=== PATIENT | female | born 1945 | race Caucasian/White ===

== ENCOUNTER → 2021-07-29 11:15 | Outpatient (CLI) | payer OTHER, SELFPAY ==
--- NOTE | 2021-07-29 | DI.MRI.S_ITS ---
PROCEDURE: MR LUMBAR SPINE WO CON INDICATIONS: Low back pain, unspecified TECHNIQUE: Noncontrast sagittal T1 spin echo and T2 fast echo, sagittal STIR, axial T1 and T2 fast spin echo through the lumbar spine. In cases with scoliosis, additional coronal T2 fast spin echo may be performed. COMPARISON: [facility] [place], XR LUMBAR SPINE WITH OLBIQUES PLUS FLEXION EXTENSION, 07/06/2021, 11:15. [facility], MR, L-SPINE WITHOUT CONTRAST, 12/08/2016, 18:58. [facility] [place], [facility], SPINE LUMB 2 OR 3VW, 11/30/2016, 15:23. FINDINGS: Image quality: Excellent. Alignment and Curvature: There is normal bony alignment. Bone Marrow: Marrow is of normal overall signal. No acute vertebral body compression fractures. Spinal Cord: Conus medullaris terminates at the L1 level. Visualized cord demonstrates normal signal and size. Paraspinous Soft Tissues: No paravertebral masses. The last well-developed disc space is regarded to be L5-S1. This numbering scheme is chosen to remain consistent with the prior MRI report. T12-L1: Normal appearance. L1-L2: Moderate loss of disc height is seen. Loss of disc signal is seen. Moderate disc bulge is seen, with a central disc extrusion, with superior migration of the disc material. The disc extrusion extends cranial caudally 1.7 cm. Moderate bilateral neural foraminal narrowing can be seen, left worse than right. Mild to moderate central canal narrowing is seen. The disc extrusion is similar to 2017. The degrees of neural foraminal narrowing have progressed compared to 2017. L2-L3: At least moderate loss of disc height and disc signal can be seen. At least moderate disc bulge is seen. There is a central disc protrusion. Reactive marrow endplate changes are seen which are hypointense on T1-weighted imaging and hyperintense on T2 weighted imaging, which is most consistent with edema (Modic type I changes). Mild to moderate facet hypertrophy is seen. There is moderate bilateral neural foraminal narrowing seen. Moderate central canal narrowing is seen. Compared to 2017, these degenerative changes have progressed. L3-L4: Moderate to severe loss of disc height and disc signal can be seen. Reactive marrow endplate changes are seen, which are hyperintense on T1-weighted and T2-weighted imaging and most consistent with fatty metaplasia (Modic type II changes). At least moderate disc bulge is seen, which is eccentric to the right. Moderate to prominent facet hypertrophy is seen. There is moderate to severe bilateral neural foraminal narrowing seen, right worse than left. There is a degree of compression seen upon the exiting nerve roots. Moderate to severe central canal narrowing is seen. The degree of central canal narrowing is exacerbated by prominent epidural fat posteriorly. These imaging findings have progressed compared to the prior study. L4-L5: Moderate loss of disc height is seen. Loss of disc signal is seen. Moderate disc bulge is seen, which is eccentric to the right. There is a central disc protrusion. Prominent facet hypertrophy is seen. There is at least moderate left-sided and moderate to severe right-sided neural foraminal narrowing seen. Moderate central canal narrowing is seen. Compared to 2017, these degenerative changes are worse. L5-S1: Moderate loss of disc height is seen. Loss of disc signal is seen. Mild to moderate disc bulge is seen. Prominent facet hypertrophy is seen at this level. There is at least moderate left-sided and mild right-sided neural foraminal narrowing seen. No central canal narrowing is seen. When comparison is made with the prior images, these findings are similar. IMPRESSION: Multiple levels of relatively prominent lumbar spine degenerative change are seen, which have progressed compared to 2017. Dictated by: Adan Jackson M.D. on 07/29/2021 at 12:33 Approved by: Adan Jackson M.D. on 07/29/2021 at 12:38
== END ==
PROVIDERS: Family Provider Internal Medicine; PCP Family Medicine; Referring Provider Physical Medicine & Rehabilitation Pain Medicine; Visit Provider Physical Medicine & Rehabilitation Pain Medicine
DX: M54.50 Low back pain, unspecified (principal); M47.816 Spondylosis without myelopathy or radiculopathy, lumbar region; M47.817 Spondylosis without myelopathy or radiculopathy, lumbosacral region
CPT/HCPCS: 72148

== ENCOUNTER → 2023-03-21 08:27 | Outpatient (CLI) | payer OTHER, SELFPAY ==
--- NOTE | 2023-03-21 08:28 | DI.RAD.S_ITS ---
PROCEDURE: XR LUMBAR SPINE MIN 4V INDICATIONS: BACK PAIN TECHNIQUE: 5 views of the lumbar spine were acquired, including bilateral oblique views. COMPARISON: [facility], MR, MR LUMBAR SPINE WO CON, 07/29/2021, 11:45. [facility] [place], CR, XR LUMBAR SPINE WITH OLBIQUES PLUS FLEXION EXTENSION, 07/06/2021, 11:15. FINDINGS: Bones: 5 nonrib-bearing vertebrae are present. There is stable bony alignment with mild levocurvature of the lumbar spine as well as minimal grade 1 anterolisthesis of L4 on L5 as well as L5 on S1. Redemonstration of advanced multilevel lumbar spondylitic changes and severe mid and lower lumbar facet arthropathy. No acute vertebral body compression fractures. No suspicious bony lesions. Soft tissues: Overlying bowel gas pattern is normal. No suspicious soft tissue calcifications. Oblique images: No pars defects. IMPRESSION: Lumbar spine without acute osseous abnormalities. Severe multilevel lumbar spondylosis. Dictated by: Enzo Adams M.D. on 03/21/2023 at 11:25 Approved by: Enzo Adams M.D. on 03/21/2023 at 11:29
== END ==
PROVIDERS: PCP Family Medicine; Referring Provider Physical Medicine & Rehabilitation; Visit Provider Physical Medicine & Rehabilitation
DX: M48.062 Spinal stenosis, lumbar region with neurogenic claudication (principal); M47.816 Spondylosis without myelopathy or radiculopathy, lumbar region; M54.17 Radiculopathy, lumbosacral region; M54.9 Dorsalgia, unspecified
CPT/HCPCS: 72110; 99214

== ENCOUNTER 2023-04-19 13:19 | Outpatient (CLI) | payer OTHER, SELFPAY ==
[2023-04-19] VITALS (9 sets, daily range): BP systolic 117–140; BP diastolic 62–76; PULSE 75–86; RESP 10–22; TEMP 36.7; O2SAT 95–98
--- NOTE | 2023-04-19 13:22 | DI.RAD.S_ITS ---
PROCEDURE: PAIN L/S FACET INJ/BLK 1ST KIRAN COMPARISON: None. INDICATIONS: SPONDYLOSIS Findings and impression: Intraoperative images for contrast injection at the right L4-L5 and L5-S1 were obtained. Please see operative note for full details. Dictated by: Nguyễn Joy M.D. on 04/19/2023 at 16:05 Approved by: Nguyễn Joy M.D. on 04/19/2023 at 16:06
[2023-04-19] MEDS: BETAMETHASONE 30 MG/5 ML MDV 12 MG INJ (14:09)
[2023-04-19] MEDS: IOPAMIDOL 15 ML VIAL 3 ML INJ (14:10)
[2023-04-19] MEDS: BUPIVACAINE 0.5% (PF) 10 ML VIAL 5 ML INJ (14:10)
[2023-04-19] MEDS: LIDOCAINE 1% 20 ML 5 ML INJ (14:10)
[2023-04-19] MEDS: MIDAZOLAM 2 MG/2 ML VIAL IV (14:11)
--- NOTE | 2023-04-19 14:27 | P.PCN_ITS ---
Date/Time/Diagnoses Date of procedure: 04/19/23 Time of procedure: 14:27 Pre-procedure diagnosis: 1. FACET ARTHROPATHY 2. AXIAL LBP 3. MULTILEVEL DDD Post-procedure diagnosis: same Procedure Notes Procedure: 1. FLUOROSCOPICALLY GUIDED CONTRAST CONTROLLED FACET JOINT INJECTIONS BILATERAL L4/5, L5/S1 Indications: Sujatha is referred by Dr. Lawrence for treatment of Axial LBP Physician: Terrance Carrillo Total Fluoroscopy time (seconds): 15 Total sedation minutes: 16 Complications: none Procedure in detail & Post-procedure care: FINDINGS Multilevel Facet Arthropathy with Clinically significant axial LBP DESCRIPTION OF PROCEDURE Fluoroscopically guided, contrast-controlled bilateral L4/5, L5/S1 facet joint injections. Following review of allergy and review of potential side effects and complications, including, but not necessarily limited to, infection, allergic reaction, local tissue breakdown, stroke, temporary or permanent nerve injury, paralysis, and possible , the patient indicated that the patient understood and agreed to proceed. An informed consent document was signed by the patient, witnessed by a nurse, and placed in the patient's chart. Additionally, other treatment options including medications, modalities, and physical therapy were reviewed with the patient. After review of previous anaesthesic history and IV conscious sedation the patient was deemed safe to proceed with today?s procedure with IV conscious sedation as ASA class II designation. Safety time-out was performed to confirm patient ID, procedure to be performed and site of procedure. IV sedation was accomplished with a combination of 2mg of Versed was administered by the RN after DO order, titrated to patient comfort during the course of the procedure while the patient remained responsive to all verbal commands In the prone position, following sterile prep and drape of the lumbar region, the posterior aspect of the L4/5, L5/S1 facet joints were identified fluoroscopically. The skin was anesthetized via a 25-gauge 1.5inch needle with 1% lidocaine solution into the corresponding facet joints. At this point, a 22- gauge 3.5-inch spinal needle was atraumatically introduced and advanced under fluoroscopic guidance into the corresponding facet joints. Following negative aspiration, injections of approximately 0.2cc of Isovue 200 confirmed interarticular placement without vascular uptake. The identical procedure was then performed at the L4/5, L5/S1 facet joints on the left. Radiological data, including multiple fluoroscopic views of the lumbosacral spine, reveal a spinal needle at the L4/5, L5/S1 facet joints bilaterally. Subsequent views show flow of contrast material both superiorly and inferiorly within the joint space without vascular or intrathecal uptake. At this point, a total of 0.5cc including a mixture of 0.25cc Marcaine and 0.25cc betamethasone was injected without complication into each of the corresponding facet joints. The patient tolerated the procedure well without signs or symptoms of complications prior to transfer to the recovery area continued monitoring without incident. The patient was then transferred to the recovery area where they were observed for an appropriate period of time after the injection. The patient reported a VAS score of 7 prior to the procedure and a post- procedure VAS of 0. POST OP INSTRUCTIONS The patient was provided a Pain Log to continue to record their response to the target-specific procedure prior to follow-up visit with their referring physician. Additionally, specific post-injection care instructions and a contact number to our office were provided if concerns arise regarding possible complications associated with the procedure are suspected.
== END 2023-04-19 14:58 | disposition home or self-care (01) ==
LOC: RAD 13:20
PROVIDERS: PCP Family Medicine; Referring Provider Physical Medicine & Rehabilitation; Visit Provider Physical Medicine & Rehabilitation
DX: M47.816 Spondylosis without myelopathy or radiculopathy, lumbar region (principal); M47.817 Spondylosis without myelopathy or radiculopathy, lumbosacral region; M51.36 Other intervertebral disc degeneration, lumbar region; M51.37 Other intervertebral disc degeneration, lumbosacral region
CPT/HCPCS: 64493; 64494; 99152; J0702; J2250

== ENCOUNTER 2023-08-16 13:37 | Outpatient (CLI) | payer OTHER, SELFPAY ==
[2023-08-16] VITALS (8 sets, daily range): BP systolic 137–174; BP diastolic 69–90; PULSE 92–100; RESP 13–26; TEMP 36.6; O2SAT 95–99
--- NOTE | 2023-08-16 13:38 | DI.RAD.S_ITS ---
PROCEDURE: PAIN L/S FACET INJ/BLK 1ST KIRAN INDICATIONS: SPONDYLOSIS COMPARISON: [facility], , PAIN L/S FACET INJ/BLK 1ST KIRAN, 04/19/2023, 14:09. FINDINGS: Fluoroscopic spot filming was performed to verify placement of spinal needles at the bilateral L4, L5 and S1 medial branch level(s), as labeled on the films. Appropriate location(s) of the needle tip(s) was confirmed by injection of iodinated contrast. IMPRESSION: Access needles placed for bilateral L4, L5 and S1 medial branch blocks. Dictated by: Chelsie Durbin MD, PhD on 08/16/2023 at 15:23 Approved by: Chelsie Durbin MD, PhD on 08/16/2023 at 15:23
[2023-08-16] MEDS: MIDAZOLAM 2 MG/2 ML VIAL IV (14:13)
[2023-08-16] MEDS: LIDOCAINE 1% 20 ML 5 ML INJ (14:17)
[2023-08-16] MEDS: BUPIVACAINE 0.5% (PF) 10 ML VIAL 2 ML INJ (14:17)
[2023-08-16] MEDS: iopamidoL 15 ML VIAL 3 ML INJ (14:18)
--- NOTE | 2023-08-16 14:32 | PM.PROC.IR.1 ---
Date/Time/Diagnoses Date of procedure: 08/16/23 Time of procedure: 14:33 Pre-procedure diagnosis: 1. FACET ARTHROPATHY Post-procedure diagnosis: same Procedure Notes Procedure: 1. BILATERAL- L4, L5 and S1 DIAGNOSTIC MB BLOCKS with LA Anesthetic Indications: Sujatha is referred by Dr. Lawrence for treatment of Bilateral Axial LBP. Physician: Terrance Carrillo Total Fluoroscopy time (seconds): 10 Total sedation minutes: 10 Complications: none Procedure in detail & Post-procedure care: DESCRIPTION OF PROCEDURE Fluoroscopically guided, contrast-controlled bilateral L4, L5 and S1 medial branch blocks with 0.5cc of 0.5% Marcaine. Following review of allergy and review of potential side effects and complications, including, but not necessarily limited to, infection, allergic reaction, local tissue breakdown, nerve injury, paralysis, stroke and possible , the patient indicated that the patient understood and agreed to proceed. An informed consent document was signed by the patient, witnessed by a nurse, and placed in the patient's chart. After review of previous anaesthesic history and IV conscious sedation the patient was deemed safe to proceed with today's procedure with IV conscious sedation as ASA class II designation. Safety time-out was performed to confirm patient ID, procedure to be performed and site of procedure. IV sedation was accomplished with a combination of 2mg of Versed was administered by the RN after DO order, titrated to patient comfort during the course of the procedure while the patient remained responsive to all verbal commands In the prone position, following sterile prep and drape of the lumbar region, the right L4, L5 and S1 anatomical location of the medial branch of the dorsal ramus was identified fluoroscopically. Subsequently an anesthetic skin wheal using 1% lidocaine solution was initiated at each of the anatomical spots. Subsequently then a 22-gauge 3.5-inch spinal needle was atraumatically introduced and advanced under fluoroscopic guidance at each of the corresponding sites at the right L4, L5 and S1 MB. After negative aspiration, 0.2cc of Isovue 200 was injected, confirming placement without vascular or intrathecal uptake. Subsequently then 0.5cc of 0.5% Marcaine solution was injected at each of the corresponding sites at the right L4, L5 and S1 medial branch locations. The identical procedure was replicated on the left. The patient tolerated the procedure well without signs or symptoms of complications prior to transfer to the recovery area continued monitoring without incident. Post-procedure, the patient was monitored initiating provocative activities to measure the amount of relief from block of the facetogenic pain. The patient reported a VAS of 7 prior to the procedure and a post-procedure VAS of 1. It has been a pleasure to assist in the diagnostic and therapeutic care of your patient. POST OP INSTRUCTIONS The patient was provided with a Pain Log to complete over the next several hours and subsequent days prior to the patient's follow up with the ordering physician. If the patient has take out waitress relief to the solution applied, then they may be a candidate for medial branch rhizotomy. The patient is aware, was provided, once again, with a Pain Log and will follow up with the referring physician for review and clinical correlation
== END 2023-08-16 14:53 | disposition home or self-care (01) ==
PROVIDERS: PCP Family Medicine; Referring Provider Physical Medicine & Rehabilitation; Visit Provider Physical Medicine & Rehabilitation
DX: M47.816 Spondylosis without myelopathy or radiculopathy, lumbar region (principal); M47.817 Spondylosis without myelopathy or radiculopathy, lumbosacral region
CPT/HCPCS: 64493; 64494; 99152; J2250

== ENCOUNTER 2024-02-06 14:07 | Emergency (ER) | payer MEDICARE, SELFPAY ==
[2024-02-06] VITALS (8 sets, daily range): BP systolic 167–184; BP diastolic 76–98; PULSE 92–110; RESP 20–25; TEMP 36.5; O2SAT 97–99; BMI 33.3
--- NOTE | 2024-02-06 | DI.RAD.S_ITS ---
PROCEDURE: XR LUMBAR SPINE 2-3V INDICATIONS: FALL YESTERDAY. LOW BACK PAIN. TECHNIQUE: 3 views of the lumbar spine were acquired. COMPARISON: [facility], [facility], XR LUMBAR SPINE MIN 4V, 03/21/2023, 8:37. [facility], [facility], L-SPINE 2-3 VIEWS, 01/05/2016, 14:25. FINDINGS: Bones: Overall moderate degenerative changes, with disc space height loss, osteophytes, facet arthropathy. Trace retrolisthesis of L3 on L4. Vertebral body heights are well maintained. No traumatic subluxation Soft tissues: Vascular calcifications. No suspicious calcifications. Advanced degenerative changes of the hips, partially seen, greater on the left. IMPRESSION: Moderate spondylosis. No acute radiographic abnormality. If there is high concern for further derangement, consider MRI evaluation. Advanced hip degenerative changes, greater on the left partially seen. Dictated by: Nguyễn Joy M.D. on 02/06/2024 at 16:32 Approved by: Nguyễn Joy M.D. on 02/06/2024 at 16:33
--- NOTE | 2024-02-06 15:33 | DI.RAD.S_ITS ---
PROCEDURE: XR HIP W PEL IF DONE RT 2V INDICATIONS: slipped and fell on RIGHT hip, new numbness right leg TECHNIQUE: 2 views of the hip were acquired. COMPARISON: [facility], CR, XR PELVIS WITH LATERAL HIP LEFT, 02/02/2024, 15:33. FINDINGS: Bones: Severe degenerative changes of the hips, greater on the left. Flattening of the left femoral head, possibly superimposed AVN. No acute displaced fracture or dislocations identified. Soft tissues: Pelvic calcifications are probably phleboliths. Lumbosacral spondylosis partially seen IMPRESSION: No acute displaced fracture or dislocation. Left greater right degenerative changes, possible superimposed AVN on the left with femoral head flattening. If there is high concern for occult injury, consider repeat radiography or cross-sectional imaging. Dictated by: Nguyễn Joy M.D. on 02/06/2024 at 16:33 Approved by: Nguyễn Joy M.D. on 02/06/2024 at 16:34
[2024-02-06 15:40] LABS: Add Manual Diff / Slide Review NO; Basophils Absolute Auto 100 /uL (0-100); Basophils Percent Auto 0.6 % (0-2); Eosinophils Absolute Auto 200 /uL (0-450); Eosinophils Percent Auto 1.9 % (2-4); Hematocrit 40.8 % (36-46); Hemoglobin 13.9 g/dL (12.0-16.0); Lymphocytes Absolute Auto 1500 /uL (1100-4500); Lymphocytes Percent Auto 12.9 % (25-40); Mean Corpuscular HGB Conc 34.2 % (30-36); Mean Corpuscular Hemoglobin 34.2 PG (26-34); Mean Corpuscular Volume 100.1 fL (80-100); Monocytes Absolute Auto 1300 /uL (0-900); Monocytes Percent Auto 11.1 % (3-14); Neutrophils Absolute Auto 8500 /uL (1500-7000); Neutrophils Percent Auto 73.5 % (50-75); Platelet Count 233 X10^3/uL (150-400); Red Blood Cell Count 4.07 X10^6/uL (4.0-5.2); Red Cell Distribution Width 13.6 % (11.6-14.8); White Blood Cell Count 11.5 X10^3/uL (4.5-11.0)
[2024-02-06 15:46] LABS: Alanine Aminotransferase 42 IU/L (<35); Albumin 4.5 g/dL (3.5-5.0); Albumin Globulin Ratio 1.7 (1.0-2.8); Alkaline Phosphatase 114 U/L (38-126); Aspartate Aminotransferase 46 IU/L (14-36); BUN Creatinine Ratio 21.7 (6-22); Bilirubin Total 0.8 mg/dL (0.2-1.3); Blood Urea Nitrogen 13 mg/dL (7-17); Calcium 9.6 mg/dL (8.4-10.2); Carbon Dioxide 28 mmol/L (22-32); Chloride 98 mmol/L (98-107); Estimated Glomerular Filt Rate > 60 mL/min (>60); Globulin 2.7 g/dL (1.7-4.1); Glucose 112 mg/dL (80-110); HEMOLYSIS < 15 (0-50); Potassium 4.4 mmol/L (3.4-5.1); Sodium 131 mmol/L (137-145); Total Protein 7.2 g/dL (6.3-8.2)
[2024-02-06] MEDS: OXYCODONE/ACETAMINOPHEN 5/325 TABLET 1 TAB PO (16:29)
--- NOTE | 2024-02-06 16:44 | ED.FALL ---
HPI - Fall General Chief Complaint: Fall Stated Complaint: GLF no thinners, hip and back injury Time Seen by Provider: 02/06/24 15:34 Source: patient Mode of arrival: Wheelchair History of Present Illness HPI Narrative: 78-year-old woman with a history of significant osteoarthritis scheduled to have a left hip replacement but recognizes she actually needs bilateral hip replacement. History of hypertension, she was in her kitchen yesterday believes she slipped on some soup that was spilled on the floor landed on her butt and is now complaining of low back pain and right hip pain worse than her baseline with some mild paresthesias down the anterior thigh. She was able to ambulate with her walker into the emergency department. Related Data Home Medications Medication Instructions Recorded Confirmed acetaminophen 500 mg tablet 500 mg PO Q6H PRN 03/21/23 07/13/23 (Tylenol Extra Strength) ibuprofen 200 mg tablet (Advil) 600 mg PO BID 03/21/23 07/13/23 lisinopril 20 1 tab PO DAILY 03/21/23 07/13/23 mg-hydrochlorothiazide 12.5 mg tablet Previous Rx's Medication Instructions Recorded diazepam 10 mg tablet (Valium) 10 mg PO .COMPLEX PRN 1-2 prior to 07/22/23 MRI and for possible steroid flare #10 tabs gabapentin 300 mg capsule 300 mg PO .COMPLEX #90 caps 08/17/23 oxycodone-acetaminophen 5 mg-325 1 tab PO Q6H PRN pain #20 tabs 02/06/24 mg tablet Allergies Allergy/AdvReac Type Severity Reaction Status Date / Time No Known Drug Allergies Allergy Verified 07/13/23 14:16 Review of Systems Review of Systems Narrative: Pertinent positive and negative findings as per HPI Patient History Medical History HTN (hypertension) Lumbosacral radiculopathy at L4 Spinal stenosis, lumbar region with neurogenic claudication Facet arthropathy, lumbar Surgical History H/O knee surgery Family History Father Heart disease Mother Heart disease Social History Smoking Status: Never smoker Smoking Status: Never smoker alcohol intake frequency: 0-2 drinks per day Alcohol type: wine and hard liquor Substance Use Type: does not use Exam Initial Vital Signs Initial Vital Signs: Vital Signs Temperature 97.7 F 02/06/24 14:22 Pulse Rate 110 H 02/06/24 14:22 Respiratory Rate 24 02/06/24 14:22 Blood Pressure 171/82 H 02/06/24 14:22 Pulse Oximetry 99 02/06/24 14:22 Oxygen Delivery Method Room Air 02/06/24 14:22 General: Healthy appearing, mild pain but Able to give a complete and coherent history. HEENT: Moist mucous membranes, normal sclera with reactive pupils, Respiratory: Lungs are clear to auscultation, no wheezing no rales no rhonchi. Full and symmetrical air movement Cardiac: Regular rate and rhythm no murmurs no bruits Abdomen: Soft, nontender, good bowel tones, no flank pain Spine: Mild tenderness along the lumbar spine without localizing pain. Mild tenderness with manipulation of the pelvic ring. Tenderness with movement of the right hip. Baseline arthritis at all of the sites known as well Skin: Warm and dry, no rashes Neurologic: Grossly neurologically intact with no obvious asymmetries or abnormalities Extremities: No significant abrasions or contusions Psych: Cooperative, appropriate insight and affect Course Orders Ordered: ED Orders 02/06/24 15:24 CBC Auto Diff [Complete Blood Count AUTO DIFF] Stat Comprehensive Metabolic Panel Stat 02/06/24 15:33 XR hip w pel if done RT 2V Stat 02/06/24 15:49 EKG-12 Lead Stat Sodium Chloride (Sodium Chloride 0.9% Flush) 10 ml IV BID JOSE JUAN Sodium Chloride (Sodium Chloride 0.9% Flush) 10 ml IV PRN PRN PRN Reason: Flush Discontinued Medications Oxycodone/Acetaminophen (Oxycodone/Acetaminophen 5/325 Tablet) 1 tab PO NOW ONE Stop: 02/06/24 15:50 Last Admin: 02/06/24 16:29 Dose: 1 tab Documented By: ANNIE Vital Signs Vital signs: Vital Signs - 8 hr 02/06/24 14:22 02/06/24 15:13 02/06/24 15:30 Temperature 97.7 F Pulse Rate 110 H 105 H 100 H Respiratory Rate 24 25 H 20 Blood Pressure 171/82 H Pulse Oximetry 99 98 98 Oxygen Delivery Method Room Air 02/06/24 16:14 Temperature Pulse Rate 101 H Respiratory Rate Blood Pressure Pulse Oximetry 99 Oxygen Delivery Method Room Air MDM - Fall Lab Data 02/06/24 15:24 02/06/24 15:24 Labs: Lab Results 02/06/24 Range/Units 15:24 WBC 11.5 H (4.5-11.0) X10^3/uL RBC 4.07 (4.0-5.2) X10^6/uL Hgb 13.9 (12.0-16.0) g/dL Hct 40.8 (36-46) % MCV 100.1 H (80-100) fL MCH 34.2 H (26-34) PG MCHC 34.2 (30-36) % RDW 13.6 (11.6-14.8) % Plt Count 233 (150-400) X10^3/uL Neut % (Auto) 73.5 (50-75) % Lymph % (Auto) 12.9 L (25-40) % [place] % (Auto) 11.1 (3-14) % Eos % (Auto) 1.9 L (2-4) % Baso % (Auto) 0.6 (0-2) % Neut # (Auto) 8500 H (8019-5523) /uL Lymph # (Auto) 1500 (7109-2380) /uL [place] # (Auto) 1300 H (0-900) /uL Eos # (Auto) 200 (0-450) /uL Baso # (Auto) 100 (0-100) /uL Sodium 131 L (137-145) mmol/L Potassium 4.4 (3.4-5.1) mmol/L Chloride 98 (98-107) mmol/L Carbon Dioxide 28 (22-32) mmol/L BUN 13 (7-17) mg/dL Creatinine 0.60 (0.52-1.04) mg/dL Estimated GFR > 60 (>60) mL/min BUN/Creatinine Ratio 21.7 (6-22) Glucose 112 H (80-110) mg/dL Calcium 9.6 (8.4-10.2) mg/dL Total Bilirubin 0.8 (0.2-1.3) mg/dL AST 46 H (14-36) IU/L ALT 42 H (<35) IU/L Alkaline Phosphatase 114 (38-126) U/L Total Protein 7.2 (6.3-8.2) g/dL Albumin 4.5 (3.5-5.0) g/dL Globulin 2.7 (1.7-4.1) g/dL Albumin/Globulin Ratio 1.7 (1.0-2.8) MDM Narrative Medical decision making narrative: CC: Fall with right hip pain Complicating co-morbidities: Significant osteoarthritis scheduled for left hip replacement in less than a week Data collected from: patient, daughter Differential considered: Contusion, hip fracture, pelvic fracture, new compression fracture Exam documented above, pertinent findings include: Patient is clearly in pain but has no obvious point tenderness along her spine along her pelvis. Severe osteoarthritis in both hips. She does not have any bruising over her back or buttocks. No tenderness in the thoracic spine. Abdomen is soft. Lab Test results independently reviewed as above. Pertinent findings: CBC shows mild leukocytosis without significant left shift. No anemia Chemistries show normal renal function, sodium slightly low at 131, ALT and AST are slightly elevated at 46 and 42 respectively. Imaging studies independently reviewed: Lumbar spine x-rays do not show new compression fractures X-ray of the right hip with pelvis does not suggest pelvic ring fracture or new hip fracture, severe osteoarthritis bilaterally is appreciated Treatments: Oral Percocet Discussion: 78-year-old woman with mechanical fall landing on her buttocks last night. She was able to get up off the ground has been able to move with her walker but is having increasing pain. X-rays do not suggest new compression fractures pelvic ring fractures or hip fractures. We reviewed the fact that you can hurt significantly even without having something broken. There was no indication of internal bleeding. I think she is going to be safe for her left hip replacement scheduled as an outpatient for next week Discharge Plan Departure Patient Disposition: Home Clinical Impression: Acute low back pain Fall Qualifiers: Encounter type: initial encounter Qualified Code(s): W19.XXXA - Unspecified fall, initial encounter Contusion of hip, right Qualifiers: Encounter type: initial encounter Qualified Code(s): S70.01XA - Contusion of right hip, initial encounter Instructions: DI for Contusion Activity Restrictions/Additional Instructions: Thank you for coming in today It sounds like you took a very hard fall yesterday. Often times after a fall there is more pain in the 1st 48 hours. I believe that is what you are experiencing. X-rays do not show any new compression fractures or problems in your lower spine. Similarly, there is no evidence of a pelvic fracture or right hip fracture. You do have severe bilateral hip osteoarthritis At this time, I am going to recommend using 1-2 Tylenol every 6 hours or 1 Percocet with 1 Tylenol every 6 hours. Percocet is a narcotic maybe more effective to help you sleep. It will cause constipation. When you fall hard enough that your back is also hurting your guts will tend to slow down also causing constipation When you picket [employer] the prescription for Percocet, please picket [employer] a a bottle of MiraLax. I would recommend at least 1 capful of the white powder in a large glass of water everyday that you use Percocet. If you have not had a bowel movement that day please increase the dose. You can not overdose on MiraLax. If you find that you are getting worse or having new symptoms please feel free to return to the emergency department Prescriptions: New oxycodone-acetaminophen 5-325 mg tablet 1 tab PO Q6H PRN (Reason: pain) Qty: 20 0RF No Action diazepam [Valium] 10 mg tablet 10 mg PO .COMPLEX MDD 3 tabs PRN (Reason: 1-2 prior to MRI and for possible steroid flare) Qty: 10 0RF Rx Instructions: 10 mg PO PRN; gabapentin 300 mg capsule 300 mg PO .COMPLEX Qty: 90 2RF Rx Instructions: 1-2 PO Tid to begin at HS and titrate to pain relief lisinopril-hydrochlorothiazide 20-12.5 mg tablet 1 tab PO DAILY ibuprofen [Advil] 200 mg tablet 600 mg PO BID Hold Instructions: Home Medication placed on hold at Doctor's office acetaminophen [Tylenol Extra Strength] 500 mg tablet 500 mg PO Q6H PRN Referrals: Ricky Lawrence MD [Primary Care Provider] - Stand Alone Forms: Patient Portal/API
== END 2024-02-06 18:30 | disposition home or self-care (01) ==
PROVIDERS: Emergency Provider Emergency Medicine; PCP Family Medicine
DX: M54.50 Low back pain, unspecified (principal); S70.01XA Contusion of right hip, initial encounter; R07.9 Chest pain, unspecified; W18.30XA Fall on same level, unspecified, initial encounter
CPT/HCPCS: 36415; 72100; 73502; 80053; 85025; 93005; 99283; 99284